=== PATIENT | male | born 1940 | race Caucasian/White ===

== ENCOUNTER 2022-08-09 18:14 | Inpatient (IN) | payer MEDICARE, BC ==
[~2022-08-09] VITALS: Ht 167.6 cm; Wt 79.4 kg
--- NOTE | 2022-08-09 19:00 | NUR ---
RN RECIEVING/ADMIT NOTE PATIENT ARRIVED TO THE UNIT VIA EMS, STABLE. PATIENT IS A/OX3, NON-MALODOROUS. NO S/S OF DISTRESS, BREATHING WITHOUT DIFFICULTY ON ROOM AIR. PATIENT EXPRESSED NO SI/HI IDEATION WHEN ASKED. NO SKIN ISSUES APPARENT. BS LEVEL CHECKED RESULTING IN BS 106. PATIENT IS NOT CLEAR TO WHY HE IS HERE AT THE HOSPITAL, GPS. PATIENT HAS ALREADY CONTACTED HIS LETTING HER KNOW HE IS HERE AT [facility]. SAFETY MEASURES IN PLACE: BED IS LOCKED AND AT LOWEST POSITION, RAILS UP X2, CALL ESTRADA WITHIN ACCESS. WILL CONTINUE TO MONITOR PATIENT.
[2022-08-09 20:00] VITALS: BP 121/64
[2022-08-09] MEDS ORDERED: ALLO300T2 PO (20:14)
[2022-08-09] MEDS ORDERED: LORAZEPAM 0.5 MG TABLET PO PRN (20:30)
[2022-08-09] MEDS ORDERED: ZOLPIDEM TARTRATE 5 MG TABLET PO PRN (20:30)
[2022-08-09] MEDS ORDERED: MAG HYDROX/AL HYDROX/SIMETH 30 ML UDC PO PRN (20:30)
[2022-08-09] MEDS ORDERED: MAGNESIUM HYDROXIDE 30 ML UDC PO PRN (20:30)
[2022-08-09] MEDS ORDERED: ATOR80TA PO (20:31)
[2022-08-09] MEDS ORDERED: CLOP75TA15 PO (20:33)
[2022-08-09] MEDS ORDERED: DONE10TA44 PO (20:34)
[2022-08-09] MEDS ORDERED: MULT-754 PO (20:36)
[2022-08-09] MEDS ORDERED: ESCI20TA PO (20:36)
[2022-08-09] MEDS ORDERED: NALT50TA PO (20:37)
[2022-08-09] MEDS ORDERED: OMEP40CA21 PO (20:38)
[2022-08-09] MEDS ORDERED: RIVA10TA PO (20:39)
[2022-08-09] MEDS ORDERED: SACU1TAB PO (20:43)
[2022-08-09] MEDS ORDERED: TAMS-12 PO (20:43)
[2022-08-09] MEDS ORDERED: RISP0.5T65 PO (20:44)
[2022-08-09] MEDS ORDERED: ALPR0.255 MT (20:46)
[2022-08-09] MEDS ORDERED: AMLO2.5T4 PO (20:50)
[2022-08-09] MEDS ORDERED: SPIR25TA6 PO (20:51)
[2022-08-09] MEDS ORDERED: BLOOD SUGAR DIAGNOSTIC 1 EACH STRIP IN ONE (21:00)
[2022-08-09 21:05] VITALS: BP 121/64
[2022-08-10 07:44] LABS: CALCIUM, SERUM 9.2 mg/dL (8.5-10.1); CREATININE 0.9 mg/dL (0.6-1.3); POTASSIUM 4.3 mmol/L (3.5-5.1)
[2022-08-10 08:00] VITALS: BP 144/77
[2022-08-10] MEDS: TAMSULOSIN 0.4 MG CAP.SR.24H PO SCH (08:10)
[2022-08-10] MEDS: PANTOPRAZOLE 40 MG TABLET.DR PO SCH (08:10)
[2022-08-10] MEDS: SPIRONOLACTONE 25 MG TABLET PO SCH (08:10)
[2022-08-10] MEDS: AMLODIPINE BESYLATE 2.5 MG TABLET PO SCH (08:11)
[2022-08-10] MEDS: MULTIVITAMINS,THERAGRAN 1 UDTAB TABLET PO SCH (08:11)
[2022-08-10] MEDS: ALLOPURINOL 100 MG TABLET PO SCH (08:12)
[2022-08-10] MEDS: ACETAMINOPHEN 325 MG TABLET PO PRN (08:12)
[2022-08-10] MEDS: CLOPIDOGREL BISULFATE 75 MG TABLET PO SCH (08:20)
[2022-08-10 08:38] LABS: BASOPHILS % (AUTO) 0.4 % (0.0-2.0); EOSINOPHILS % (AUTO) 8.4 % (0.0-6.0); HEMATOCRIT 34 % (39-51); HEMOGLOBIN 10.7 g/dL (13.5-17.5); LYMPHOCYTES # (AUTO) 1.2 K/uL (0.8-4.8); MEAN CORPUSCULAR HGB CONC 32 g/dl (31.0-36.0); MEAN CORPUSCULAR VOLUME 91 fL (80-96); MONOCYTES # (AUTO) 0.5 K/uL (0.1-1.30); MONOCYTES % (AUTO) 11.7 % (2.0-12.0); NEUTROPHILS # (AUTO) 2.4 K/uL (1.8-8.9); NEUTROPHILS % (AUTO) 53.5 % (43.0-81.0); PLATELET COUNT (AUTO) 195 K/uL (150-450); RED BLOOD CELL COUNT(AUTO) 3.68 MIL/uL (4.5-6.0); WHITE BLOOD COUNT (AUTO) 4.4 K/uL (4.3-11.0)
[2022-08-10] MEDS: RIVAROXABAN 10 MG TABLET PO SCH (09:40)
[2022-08-10] MEDS: SACUBITRIL/VALSARTAN 1 EACH TABLET PO SCH ×2 (11:05→16:57)
[2022-08-10 16:00] VITALS: BP 124/72
[2022-08-10 20:19] VITALS: BP 134/66
[2022-08-10] MEDS ORDERED: DONEPEZIL 5 MG TABLET PO SCH (22:00)
[2022-08-10] MEDS: ATORVASTATIN 40 MG TABLET PO SCH (22:20)
[2022-08-10] MEDS: QUETIAPINE FUMARATE 25 MG TABLET PO SCH (22:20)
--- NOTE | 2022-08-11 07:00 | NUR ---
RN NOTES RECEIVED PT ASLEEP IN BED, EASY TO AROUSE, ABLE TO MAKE NEEDS KNOWN, FOLLOWS DIRECTION, COMPLIANT WITH CARE, ALL SAFETY MEASURES IN PLACE AT THIS TIME
[2022-08-11] MEDS: PANTOPRAZOLE 40 MG TABLET.DR PO SCH (07:30)
[2022-08-11 08:00] VITALS: BP 133/73
[2022-08-11] MEDS: VENLAFAXINE XR 75 MG CAP.SR.24H PO SCH (09:00)
[2022-08-11] MEDS: SACUBITRIL/VALSARTAN 1 EACH TABLET PO SCH ×2 (09:00→17:00)
[2022-08-11] MEDS: TAMSULOSIN 0.4 MG CAP.SR.24H PO SCH (11:02)
[2022-08-11] MEDS: SPIRONOLACTONE 25 MG TABLET PO SCH (11:02)
[2022-08-11] MEDS: MULTIVITAMINS,THERAGRAN 1 UDTAB TABLET PO SCH (11:02)
[2022-08-11] MEDS: RIVAROXABAN 10 MG TABLET PO SCH (11:05)
[2022-08-11] MEDS: AMLODIPINE BESYLATE 2.5 MG TABLET PO SCH (11:06)
[2022-08-11] MEDS: ALLOPURINOL 100 MG TABLET PO SCH (11:07)
[2022-08-11] MEDS: CLOPIDOGREL BISULFATE 75 MG TABLET PO SCH (11:09)
--- NOTE | 2022-08-11 12:11 | NUR ---
CAROLEE Clinical Note: Pt placed on a 5150 hold for danger to self. Pt brought to the hospital due to suicidal statements. Patient currently resides at an Assisted living called [facility] [place] [address]; ([phone]). CAROLEE spoke with Veronique ernst ([phone]) and she stated that they would need to discuss with coorperate if pt is welcomed back. She stated Clara admin will contact this remote mortgage underwriter. CAROLEE will contact pt's Huma ([phone]) and will gather collateral and discuss treatment/discharge plan.
--- NOTE | 2022-08-11 12:11 | NUR ---
CAROLEE Initial Discharge Note: Patient currently resides at an Assisted living called [facility] in [address] [address]; ([phone]). CAROLEE spoke with Veronique ernst ([phone]) and she stated that they would need to discuss with coraziaerate if pt is welcomed back. She stated Clara admin will contact this bid writer. CAROLEE will contact pt's Huma ([phone]) and will gather collateral and discuss treatment/discharge plan. CAROLEE will work with the MD, family, and pt to help coordinate appropriate discharge.
--- NOTE | 2022-08-11 12:12 | NUR ---
Treatment Plan: Pt appeared labile and suspicious, he refused to sign treatment plan.
--- NOTE | 2022-08-11 13:33 | NUR ---
FACILITY CONTACT: SW RECEIVED A CALL FROM RACHEAL DIRECTOR FROM PT[facility] ([phone]) WHO STATED THAT SHE IS UNSURE IF PT IS THE APPROPRIATE FIT AND IT IS WELCOMED BACK. SHE STATED THAT SHE WOULD HAVE TO DISCUSS WITH HER TREATMENT TEAM AND POSSIBLY RE-ASSESS PT. SHE STATED SHE WILL CONTACT THIS REPLENISHMENT ASSOCIATE TO DISCUSS FURTHER.
--- NOTE | 2022-08-11 14:21 | NUR ---
CAROLEE Family Contact: CAROLEE contacted pt's Huma ([phone]) to gather collateral and discuss treatment. She stated that she is currently in a business meeting and would want this process description writer to contact her tomorrow. CAROLEE will attempt to contact tomorrow 08/12/2022.
--- NOTE | 2022-08-11 15:03 | NUR ---
RN NOTES PT ON ABT, NO ADVERSE REACTION AND NO SIDE EFFECTS NOTED AT THIS TIME FROM THE ABT TREATMENT, PT COMPLIANT WITH PO MEDICATION ORDERS AND WILL CONTINUE TO MONITOR PT AND SAFETY CHECKS PERFORMED PER GPS [employer]. Addendum: 08/11/22 at 1507 by JOSEPHINE WETZEL RN INCORRECT DOCUMENTATION ABOVE ON NOTES DATED 08/11/2022 AT 1506 PM INCORRECT PLS NOTE
[2022-08-11 16:00] VITALS: BP 114/67
--- NOTE | 2022-08-11 16:54 | NUR ---
RN NOTES PT COMPLIANT WITH CARE, IN ROOM RESTING, TAKES REDIRECTION WELL AND IN A POSITIVE MOOD TODAY, NO C/O PAIN, NO SOB, AND NO DISTRESS NOTED, WILL CONTINUE TO MONITOR PT FOR SAFETY AT THIS TIME .
[2022-08-11 20:00] VITALS: BP 114/64
[2022-08-11] MEDS: QUETIAPINE FUMARATE 25 MG TABLET PO SCH (21:15)
[2022-08-11] MEDS: ATORVASTATIN 40 MG TABLET PO SCH (21:15)
--- NOTE | 2022-08-12 07:30 | NUR ---
RN NOTE- MED COMPLIANT, NEEDS ATTENDED, ENCOURAGE INTERACTION , GROOMING, PATIENT IN ROOM NO CALM, NO BEHAVIOR PROBLEM NOTED, NO SIGNS OF DISTRESS DENIES SI [facility].
[2022-08-12] MEDS: PANTOPRAZOLE 40 MG TABLET.DR PO SCH (07:44)
[2022-08-12 08:00] VITALS: BP 129/72
[2022-08-12] MEDS: TAMSULOSIN 0.4 MG CAP.SR.24H PO SCH (08:26)
[2022-08-12] MEDS: ALLOPURINOL 100 MG TABLET PO SCH (08:26)
[2022-08-12] MEDS: VENLAFAXINE XR 75 MG CAP.SR.24H PO SCH (08:27)
[2022-08-12] MEDS: MULTIVITAMINS,THERAGRAN 1 UDTAB TABLET PO SCH (08:27)
[2022-08-12] MEDS: AMLODIPINE BESYLATE 2.5 MG TABLET PO SCH (08:27)
[2022-08-12] MEDS: SPIRONOLACTONE 25 MG TABLET PO SCH (08:27)
[2022-08-12] MEDS: RIVAROXABAN 10 MG TABLET PO SCH (08:52)
[2022-08-12] MEDS: CLOPIDOGREL BISULFATE 75 MG TABLET PO SCH (08:52)
[2022-08-12] MEDS: SACUBITRIL/VALSARTAN 1 EACH TABLET PO SCH ×2 (09:00→16:44)
--- NOTE | 2022-08-12 09:20 | NUR ---
CAROLEE Family Contact: CAROLEE contacted pt's Huma ([phone]) to discuss pt's placement and what the plan would be. CAROLEE left a voicemail.
--- NOTE | 2022-08-12 09:21 | NUR ---
FACILITY CONTACT: SW CONTACTED RACHEAL DIRECTOR FROM [facility] ([phone]) STATED THAT FAMILY GAVE THEM A 30 DAY NOTICE AND THAT HE WILL NOT BE RETURNING BACK TO THE COMMUNITY.
--- NOTE | 2022-08-12 09:24 | NUR ---
CAROLEE Family Contact: CAROLEE contacted pt's Huma ([phone]) and she shared that pt will be returning back home and she is hiring caregivers.
[2022-08-12 16:00] VITALS: BP 104/49
[2022-08-12] MEDS: QUETIAPINE FUMARATE 25 MG TABLET PO SCH (21:19)
[2022-08-12] MEDS: ATORVASTATIN 40 MG TABLET PO SCH (21:19)
[2022-08-12 21:33] VITALS: BP 127/74
[2022-08-13 08:00] VITALS: BP 129/71
[2022-08-13] MEDS: PANTOPRAZOLE 40 MG TABLET.DR PO SCH (08:23)
[2022-08-13] MEDS: AMLODIPINE BESYLATE 2.5 MG TABLET PO SCH (08:42)
[2022-08-13] MEDS: VENLAFAXINE XR 75 MG CAP.SR.24H PO SCH (08:42)
[2022-08-13] MEDS: ALLOPURINOL 100 MG TABLET PO SCH (08:42)
[2022-08-13] MEDS: SPIRONOLACTONE 25 MG TABLET PO SCH (08:43)
[2022-08-13] MEDS: TAMSULOSIN 0.4 MG CAP.SR.24H PO SCH (08:43)
[2022-08-13] MEDS: RIVAROXABAN 10 MG TABLET PO SCH (08:43)
[2022-08-13] MEDS: CLOPIDOGREL BISULFATE 75 MG TABLET PO SCH (08:43)
[2022-08-13] MEDS: MULTIVITAMINS,THERAGRAN 1 UDTAB TABLET PO SCH (08:44)
[2022-08-13] MEDS: SACUBITRIL/VALSARTAN 1 EACH TABLET PO SCH ×2 (09:00→16:21)
[2022-08-13 16:00] VITALS: BP 120/74
[2022-08-13 21:17] VITALS: BP 126/80
[2022-08-13] MEDS: ATORVASTATIN 40 MG TABLET PO SCH (21:47)
[2022-08-13] MEDS: QUETIAPINE FUMARATE 25 MG TABLET PO SCH (21:47)
[2022-08-14 08:00] VITALS: BP 136/78
[2022-08-14] MEDS: PANTOPRAZOLE 40 MG TABLET.DR PO SCH (08:06)
[2022-08-14] MEDS: ALLOPURINOL 100 MG TABLET PO SCH (08:20)
[2022-08-14] MEDS: MULTIVITAMINS,THERAGRAN 1 UDTAB TABLET PO SCH (08:20)
[2022-08-14] MEDS: VENLAFAXINE XR 75 MG CAP.SR.24H PO SCH (08:20)
[2022-08-14] MEDS: TAMSULOSIN 0.4 MG CAP.SR.24H PO SCH (08:20)
[2022-08-14] MEDS: SPIRONOLACTONE 25 MG TABLET PO SCH (08:20)
[2022-08-14] MEDS: CLOPIDOGREL BISULFATE 75 MG TABLET PO SCH (08:20)
[2022-08-14] MEDS: AMLODIPINE BESYLATE 2.5 MG TABLET PO SCH (08:21)
[2022-08-14] MEDS: RIVAROXABAN 10 MG TABLET PO SCH (08:21)
[2022-08-14] MEDS: SACUBITRIL/VALSARTAN 1 EACH TABLET PO SCH ×2 (08:23→16:20)
--- NOTE | 2022-08-14 08:53 | NUR ---
Court Notification: SW contacted pt's Huma ([phone]) to notify of 1965 hearing. Left a voicemail.
--- NOTE | 2022-08-14 12:24 | NUR ---
Court Hearing: Patient's court hearing for [id number] was today and it was upheld for GD.
[2022-08-14 16:00] VITALS: BP 130/67
--- NOTE | 2022-08-14 18:22 | NUR ---
RN-NOTES PATIENT VISIBLE IN THE UNIT STAYS IN THE ROOM MOST OF THE TIME THIS SHIFT,ABLE TO MAKE NEEDS KNOWN TO THE STAFF. NO ACUTE DISTRESS NOTED.COMPLIANT WITH MEDICATIONS.COOPERATIVE WITH STAFF.ALL NEEDS ATTENDED AND ANTICIPATED. WILL CONT.MONITORING FOR SAFETY AND BEHAVIOR. WILL ENDORSE TO INCOMING NURSE FOR THE CONTINUITY OF CARE.
[2022-08-14 20:00] VITALS: BP 137/70
--- NOTE | 2022-08-14 20:01 | NUR ---
RN NOTES: PATIENT RESTING HIS ROOM . IN NO APPARENT DISTRESS NOTED. PATIENT REMAINS , DISORGANIZED, FORGETFUL ,DISHELVED , EASILY AGITATED , REDIRECRABLE ,NEEDS FREQUENTLY REDIRECTIONS SAFETY PRECAUTIONS MAINTAINED. WILL CONTINUE TO MONITOR Q15MIN ROUNDS FOR SAFETY AND BEHAVIOR.
[2022-08-14] MEDS: QUETIAPINE FUMARATE 25 MG TABLET PO SCH (21:28)
[2022-08-14] MEDS: ATORVASTATIN 40 MG TABLET PO SCH (21:28)
[2022-08-15 08:00] VITALS: BP 120/60
[2022-08-15] MEDS: PANTOPRAZOLE 40 MG TABLET.DR PO SCH (08:18)
[2022-08-15] MEDS: VENLAFAXINE XR 75 MG CAP.SR.24H PO SCH (08:35)
[2022-08-15] MEDS: TAMSULOSIN 0.4 MG CAP.SR.24H PO SCH (08:35)
[2022-08-15] MEDS: CLOPIDOGREL BISULFATE 75 MG TABLET PO SCH (08:35)
[2022-08-15] MEDS: MULTIVITAMINS,THERAGRAN 1 UDTAB TABLET PO SCH (08:35)
[2022-08-15] MEDS: ALLOPURINOL 100 MG TABLET PO SCH (08:35)
[2022-08-15] MEDS: SPIRONOLACTONE 25 MG TABLET PO SCH (08:35)
[2022-08-15] MEDS: AMLODIPINE BESYLATE 2.5 MG TABLET PO SCH (08:35)
[2022-08-15] MEDS: RIVAROXABAN 10 MG TABLET PO SCH (08:36)
[2022-08-15] MEDS: SACUBITRIL/VALSARTAN 1 EACH TABLET PO SCH ×2 (08:39→17:04)
[2022-08-15] MEDS: ACETAMINOPHEN 325 MG TABLET PO PRN (10:30)
--- NOTE | 2022-08-15 10:32 | NUR ---
RN-NOTES PATIENT REQUESTING TYLENOL FOR GENERALIZED BODY PAIN. TYLENOL 650MG P.O PRN ORDER. WILL CONT. MONITORING FOR SAFETY AND BEHAVIOR.
--- NOTE | 2022-08-15 11:06 | NUR ---
CAROLEE Note: CAROLEE received a call from renal case manager Melinda ([phone]) who wanted an update on pt.
--- NOTE | 2022-08-15 11:35 | NUR ---
RN-NOTES PATIENT SLEEPING NO ACUTE DISTRESS NOTED.
[2022-08-15 16:00] VITALS: BP 114/66
--- NOTE | 2022-08-15 18:21 | NUR ---
RN-NOTES PATIENT VISIBLE IN THE UNIT STAYS IN THE ROOM MOST OF THE TIME THIS SHIFT,ABLE TO MAKE NEEDS KNOWN TO THE STAFF. NO ACUTE DISTRESS NOTED.COMPLIANT WITH MEDICATIONS. DENIES SI/HI DURING FACE TO FACE ASSESSMENT.COOPERATIVE WITH STAFF.ALL NEEDS ATTENDED AND ANTICIPATED. WILL CONT.MONITORING FOR SAFETY AND BEHAVIOR. WILL ENDORSE TO INCOMING NURSE FOR THE CONTINUITY OF CARE.
[2022-08-15 20:48] VITALS: BP 106/60
[2022-08-15] MEDS: QUETIAPINE FUMARATE 25 MG TABLET PO SCH (21:31)
[2022-08-15] MEDS: ATORVASTATIN 40 MG TABLET PO SCH (21:31)
[2022-08-16] MEDS: PANTOPRAZOLE 40 MG TABLET.DR PO SCH (07:54)
[2022-08-16 08:00] VITALS: BP 117/61
[2022-08-16] MEDS: SACUBITRIL/VALSARTAN 1 EACH TABLET PO SCH ×2 (08:07→17:00)
[2022-08-16] MEDS: MULTIVITAMINS,THERAGRAN 1 UDTAB TABLET PO SCH (08:08)
[2022-08-16] MEDS: AMLODIPINE BESYLATE 2.5 MG TABLET PO SCH (08:08)
[2022-08-16] MEDS: SPIRONOLACTONE 25 MG TABLET PO SCH (08:08)
[2022-08-16] MEDS: CLOPIDOGREL BISULFATE 75 MG TABLET PO SCH (08:08)
[2022-08-16] MEDS: ALLOPURINOL 100 MG TABLET PO SCH (08:08)
[2022-08-16] MEDS: TAMSULOSIN 0.4 MG CAP.SR.24H PO SCH (08:08)
[2022-08-16] MEDS: VENLAFAXINE XR 75 MG CAP.SR.24H PO SCH (08:08)
[2022-08-16] MEDS: RIVAROXABAN 10 MG TABLET PO SCH (08:09)
--- NOTE | 2022-08-16 13:17 | NUR ---
RN-NOTES PATIENT'S ( [place]) TOOK ALL PATIENT'S VALUABLE HOME.CHARGE NURSE AWARE.
[2022-08-16 16:00] VITALS: BP 104/60
--- NOTE | 2022-08-16 19:29 | NUR ---
GPS RN NOTE, RECEIVED PATIENT AWAKE AND IN BED, NO S/S OR COMPLAINTS OF PAIN AT THIS TIME. PATIENT IS DISPLAYING NO S/S OF APPARENT DISTRESS AT THIS TIME. PATIENT BREATHING IS UNLABORED WITH EQUAL RISE AND FALL OF THE CHEST. PATIENT IS ALERT AND ORIENTED X 3 ON ROOM AIR WITH A SPO2 96%. PATIENT IS COMPLIANT WITH MEDICATIONS, CALM, FORGETFUL AT TIMES, POLITE, AND COOPERATIVE. PATIENT DENIES SUICIDAL AND HOMICIDAL IDEATIONS AT THIS TIME. PATIENT ASSISTED WITH TURNING AND REPOSITIONING Q2HR AND PRN FOR COMFORT AND CIRCULATION. PATIENT HAS NO NEEDS AT THIS TIME. PATIENT EDUCATED ON THE USE OF THE CALL ESTRADA. PATIENT BED SIDE RAILS UP X 2 FOR SAFETY. PATIENT BED IS LOCKED AND LOW. WILL CONTINUE TO MONITOR THIS PATIENT Q15 MINUTES WITH THE HELP OF STAFF TO MAINTAIN SAFETY.
[2022-08-16 20:18] VITALS: BP 119/54
[2022-08-16] MEDS: ATORVASTATIN 40 MG TABLET PO SCH (21:14)
[2022-08-16] MEDS: QUETIAPINE FUMARATE 25 MG TABLET PO SCH (21:15)
[2022-08-17 08:00] VITALS: BP 111/68
[2022-08-17] MEDS: PANTOPRAZOLE 40 MG TABLET.DR PO SCH (08:04)
[2022-08-17] MEDS: SPIRONOLACTONE 25 MG TABLET PO SCH (08:05)
[2022-08-17] MEDS: TAMSULOSIN 0.4 MG CAP.SR.24H PO SCH (08:05)
[2022-08-17] MEDS: CLOPIDOGREL BISULFATE 75 MG TABLET PO SCH (08:05)
[2022-08-17] MEDS: VENLAFAXINE XR 75 MG CAP.SR.24H PO SCH (08:05)
[2022-08-17] MEDS: AMLODIPINE BESYLATE 2.5 MG TABLET PO SCH (08:05)
[2022-08-17] MEDS: MULTIVITAMINS,THERAGRAN 1 UDTAB TABLET PO SCH (08:05)
[2022-08-17] MEDS: ALLOPURINOL 100 MG TABLET PO SCH (08:06)
[2022-08-17] MEDS: RIVAROXABAN 10 MG TABLET PO SCH (08:07)
[2022-08-17] MEDS: SACUBITRIL/VALSARTAN 1 EACH TABLET PO SCH ×2 (08:25→16:32)
[2022-08-17 16:00] VITALS: BP 125/70
[2022-08-17 20:07] VITALS: BP 122/66
[2022-08-17] MEDS: ATORVASTATIN 40 MG TABLET PO SCH (21:08)
[2022-08-17] MEDS: QUETIAPINE FUMARATE 25 MG TABLET PO SCH (21:08)
[2022-08-18 08:00] VITALS: BP 112/70
[2022-08-18] MEDS: SACUBITRIL/VALSARTAN 1 EACH TABLET PO SCH ×2 (09:00→16:32)
[2022-08-18] MEDS: TAMSULOSIN 0.4 MG CAP.SR.24H PO SCH (09:17)
[2022-08-18] MEDS: VENLAFAXINE XR 75 MG CAP.SR.24H PO SCH (09:17)
[2022-08-18] MEDS: ALLOPURINOL 100 MG TABLET PO SCH ×2 (09:18→09:21)
[2022-08-18] MEDS: SPIRONOLACTONE 25 MG TABLET PO SCH (09:19)
[2022-08-18] MEDS: PANTOPRAZOLE 40 MG TABLET.DR PO SCH (09:19)
[2022-08-18] MEDS: MULTIVITAMINS,THERAGRAN 1 UDTAB TABLET PO SCH (09:19)
[2022-08-18] MEDS: CLOPIDOGREL BISULFATE 75 MG TABLET PO SCH (09:19)
[2022-08-18] MEDS: AMLODIPINE BESYLATE 2.5 MG TABLET PO SCH (09:20)
[2022-08-18] MEDS: RIVAROXABAN 10 MG TABLET PO SCH (09:23)
--- NOTE | 2022-08-18 09:36 | NUR ---
CAROLEE Coordination of Care: Pt will follow up with Millinery Copyist, Dr. Cordero located at [address] [facility] [address], [place] [address]; ([phone]) on August 25 at 2PM and faxed clinicals ([phone]). Edda sea air land officer coordinated apt.
--- NOTE | 2022-08-18 13:29 | NUR ---
RN-CO: Patient has a bright affect, denies suicidal ideation and hallucinations. Denies pain and discomforts. He is cooperative to care and respectful to staff and peers.He is also motivated to self care and grooming.
[2022-08-18 16:00] VITALS: BP 129/52
[2022-08-18 20:08] VITALS: BP 130/68
[2022-08-18] MEDS: ATORVASTATIN 40 MG TABLET PO SCH (21:32)
[2022-08-18] MEDS: QUETIAPINE FUMARATE 25 MG TABLET PO SCH (21:32)
[2022-08-19] MEDS: PANTOPRAZOLE 40 MG TABLET.DR PO SCH (07:45)
[2022-08-19 08:00] VITALS: BP 110/53
[2022-08-19] MEDS: SACUBITRIL/VALSARTAN 1 EACH TABLET PO SCH ×2 (09:00→16:56)
[2022-08-19] MEDS: SPIRONOLACTONE 25 MG TABLET PO SCH (09:14)
[2022-08-19] MEDS: MULTIVITAMINS,THERAGRAN 1 UDTAB TABLET PO SCH (09:15)
[2022-08-19] MEDS: CLOPIDOGREL BISULFATE 75 MG TABLET PO SCH (09:15)
[2022-08-19] MEDS: VENLAFAXINE XR 75 MG CAP.SR.24H PO SCH (09:15)
[2022-08-19] MEDS: ALLOPURINOL 100 MG TABLET PO SCH (09:17)
[2022-08-19] MEDS: TAMSULOSIN 0.4 MG CAP.SR.24H PO SCH (09:17)
[2022-08-19] MEDS: AMLODIPINE BESYLATE 2.5 MG TABLET PO SCH (09:17)
[2022-08-19] MEDS: RIVAROXABAN 10 MG TABLET PO SCH (09:19)
[2022-08-19 16:00] VITALS: BP 124/56
--- NOTE | 2022-08-19 18:47 | NUR ---
WEB DESIGNER DEVELOPER CLOSING NOTES PATIENT IN ACTIVITY ROOM WITH VISITATION. PATIENT MED COMPLAINT. PATIENT A0X4 NO SOB, PATIENT IN A POSITIVE MOOD. PATIENT IS AMBULATORY AND ABLE TO MAKE ALL NEEDS KNOWN. WILL ENDORSE TO ZOOLOGY TECHNICAL OFFICER NURSE.
[2022-08-19 19:45] VITALS: BP 121/64
[2022-08-19] MEDS: QUETIAPINE FUMARATE 25 MG TABLET PO SCH (21:12)
[2022-08-19] MEDS: ATORVASTATIN 40 MG TABLET PO SCH (21:12)
[2022-08-20 08:00] VITALS: BP 107/70
--- NOTE | 2022-08-20 08:23 | NUR ---
SW Discharge Note: Patient will be discharged home located at [address] [place] [address]; ([phone]). Patients Huma ([phone]) will case picker pt at 12PM. Pt is alert and oriented x2. Pt happy to be going back home. Pt denies suicidal or homicidal ideation. Pt denies visual/auditory hallucinations. Pt will follow up with Soaping Department Supervisor, Dr. Cordero located at [address], [place] [address]; ([phone]) on August 25 at 2PM and faxed clinicals ([phone]) who will monitor and provide psychotropic medications. Pt presents with euthymic mood and congruent affect.
[2022-08-20] MEDS: MULTIVITAMINS,THERAGRAN 1 UDTAB TABLET PO SCH (08:33)
[2022-08-20] MEDS: PANTOPRAZOLE 40 MG TABLET.DR PO SCH (08:33)
[2022-08-20] MEDS: VENLAFAXINE XR 75 MG CAP.SR.24H PO SCH (08:33)
[2022-08-20] MEDS: TAMSULOSIN 0.4 MG CAP.SR.24H PO SCH (08:33)
[2022-08-20] MEDS: CLOPIDOGREL BISULFATE 75 MG TABLET PO SCH (08:33)
[2022-08-20 08:35] VITALS: BP 110/70
[2022-08-20] MEDS: RIVAROXABAN 10 MG TABLET PO SCH (08:35)
[2022-08-20] MEDS: AMLODIPINE BESYLATE 2.5 MG TABLET PO SCH (08:35)
[2022-08-20] MEDS: SACUBITRIL/VALSARTAN 1 EACH TABLET PO SCH (08:36)
[2022-08-20] MEDS: SPIRONOLACTONE 25 MG TABLET PO SCH (08:36)
--- NOTE | 2022-08-20 12:20 | NUR ---
RN-DISCHARGE NOTES PATIENT HAD A DISCHARGE ORDER FROM DR. GRAHAM ( PSYCHIATRIST),DR. GAO ( [place]) MEDICALLY CLEARED PATIENT FOR DISCHARGE. PATIENT WAS DISCHARGE TO HOME. PATIENT DID NOT VERBALIZE SI/HI,DENIES VISUAL/AUDITORY HALLUCINATIONS AT THE TIME OF DISCHARGE. ALL DISCHARGE MEDICATIONS WAS REVIEWED WITH THE PATIENT WITH UNDERSTANDING. INSTRUCTED TO FOLLOW UP WITH PCP AND PSYCHIATRIST IN A WEEK OR NEEDED AND CALL 911 OR GO TO THE NEAREST ER IN CASE OF EMERGENCY. PATIENT LEFT THE UNIT IN STABLE CONDITION A/O X3 AMBULATORY STEADY GAIT . PATIENT WAS INFORMATION SECURITY SPECIALIST BY [place] VIA PRIVATE CAR. ALL BELONGINGS WAS GIVEN BACK TO THE PATIENT INCLUDING RX/DISCHARGE POCKET AND WAS ENDORSE TO [place]. PATIENT WAS WHEELED DOWN THE LOBBY BY THE ACTIVITY STAFF FOR SAFETY.
== END 2022-08-20 12:20 | disposition home or self-care (01) | DRG 885 ==
LOC: GPS 18:14
PROVIDERS: ADMIT Psychiatry & Neurology Psychiatry; ATTEND Nurse Practitioner Acute Care
DX: F33.3 Major depressive disorder, recurrent, severe with psychotic symptoms (principal); F03.93 Unspecified dementia, unspecified severity, with mood disturbance; R45.851 Suicidal ideations; E78.5 Hyperlipidemia, unspecified; G89.29 Other chronic pain; I10 Essential (primary) hypertension; K21.9 Gastro-esophageal reflux disease without esophagitis; M10.9 Gout, unspecified; R73.03 Prediabetes; Z95.0 Presence of cardiac pacemaker; Z79.899 Other long term (current) drug therapy
CPT/HCPCS: 36415; 80048-TC; 80061-TC; 82962-TC; 85025-TC; 87081-TC; 97116-TC; 97530-TC